=== PATIENT | male | born 2000 | race African-American/Black ===

== ENCOUNTER 2019-04-28 20:54 | Emergency (ER) | payer BC ==
[~2019-04-28] VITALS: Ht 188 cm; Wt 89.0 kg
[2019-04-28 22:47] LABS: EOSINOPHILS % 1.7 % (0.0-5.0); HEMATOCRIT. 42.5 % (42.0-52.0); LYMPHOCYTES % 42.9 % (20.0-50.0); MEAN CORPUSCULAR VOLUME 84.8 fL (80.0-94.0); MEAN PLATELET VOLUME 9.1 fl (7.4-10.4); MONOCYTES % 12.3 % (2.0-8.0); NEUTROPHILS % 42.1 % (40.0-76.0); PLATELET 217 x1000/uL (130-400); RED BLOOD CELL COUNT 5.01 mill/uL (4.7-6.1); RED CELL DISTRIBUTION WIDTH 13.9 % (11.6-14.6)
[2019-04-28 22:54] LABS: CHLORIDE 106 mEq/L (98-107)
[2019-04-29 00:11] VITALS: BP 121/71
== END 2019-04-29 00:12 | disposition home or self-care (01) ==
LOC: ER 20:54
DX: F43.20 Adjustment disorder, unspecified (principal); Z95.1 Presence of aortocoronary bypass graft
CPT/HCPCS: 36415; 71045; 80053; 82962; 83880; 84484; 85025; 93005; 99284